=== PATIENT | female | born 1965 | race Caucasian/White ===

== ENCOUNTER 2018-05-25 16:54 | Emergency (ER) | payer OTHER ==
[~2018-05-25] VITALS: Ht 182.9 cm; Wt 85.9 kg
[~2018-05-25 16:54] MED LIST: ZOLOFT25 MG PO
[2018-05-25] MEDS ORDERED: ZOFRAN4 MG PO (19:27)
[2018-05-25] MEDS ORDERED: MOTRIN800 MG PO (19:27)
[2018-05-25] MEDS ORDERED: KEFLEX500 MG PO (19:32)
[2018-05-25 20:04] VITALS: BP 146/85
== END 2018-05-25 20:04 | disposition home or self-care (01) ==
LOC: EME 16:54
DX: S01.21XA Laceration without foreign body of nose, initial encounter (principal); S02.2XXA Fracture of nasal bones, initial encounter for closed fracture; S06.0X0A Concussion without loss of consciousness, initial encounter; W22.8XXA Striking against or struck by other objects, initial encounter; Y93.H2 Activity, gardening and landscaping; Z23 Encounter for immunization; Z88.0 Allergy status to penicillin
CPT/HCPCS: 70450; 70486; 99281; 99283